=== PATIENT | male | born 1960 | race American Indian/Alaskan Native ===

== ENCOUNTER 2022-09-01 04:19 | Emergency (ER) | payer MEDICARE, BC ==
[2022-09-01] MEDS ORDERED: HYDROCODONE-ACETAMIN 10-325 MG PO ONE (04:20)
--- NOTE | 2022-09-01 07:53 | XRAY ---
Indication: Head injury following fall. Multiple contiguous axial images obtained through the head without contrast. Comparison: None Age-appropriate global atrophy. Bifrontal lobe encephalomalacia with overlying frontal craniotomy/duraplasty. No acute intracranial hemorrhage, abnormal extra-axial fluid collection, or mass effect. Fourth ventricle is midline without hydrocephalus. Lee-white matter differentiation preserved. Enlarged right pituitary gland/mass measuring 19 x 12.6 x 18.4 mm.. Remaining bony calvarium intact. Near-complete opacification and lesser degree both ethmoid/right maxillary sinuses. Mastoid air cells are clear. Impression: 1. Postsurgical changes related to frontal craniotomy with underlying encephalomalacia. 2. No acute intracranial abnormalities. 3. Enlarged right pituitary gland/mass. Outside comparison studies recommended. 4. Incidental pansinusitis. Comment: Preliminary interpretation made by [facility]. No critical discrepancy.
--- NOTE | 2022-09-01 07:57 | XRAY ---
Indication: Pain following fall. Multiple contiguous axial images obtained through the facial bones. Sagittal and coronal reformatted images obtained. Comparison: None Bilateral dental amalgams produces beam artifact limiting these levels. No acute fracture, suspicious bone lesions, or osseous destructive process. Orbits including roof, wall, and floors intact. Near complete opacification of both frontal and lesser degree both ethmoid/right maxillary sinuses. Nasal passages are clear. Mild nasal septal deviation to the left. Visualized cervical spine is intact with incidental multilevel degenerative changes. Remaining visualized noncontrasted soft tissues are unremarkable. CT head reported separately. Impression: Paranasal sinus disease and nasal septal deviation. Remaining CT facial bones negative. Comment: Preliminary interpretation made by [facility]. No critical discrepancy.
--- NOTE | 2022-09-01 07:59 | XRAY ---
Indication: Pain following fall. Comparison: None 3 view right elbow demonstrates moderate degenerative changes with small well-circumscribed posterior heterotopic ossification. No other bony, articular, or soft tissue abnormalities.
--- NOTE | 2022-09-01 07:59 | XRAY ---
Indication: Pain following fall. Multiple contiguous axial images obtained through the cervical spine. Sagittal and coronal reformatted images obtained Comparison: None Axial images negative for acute fracture or suspicious bony lesions. Mild/moderate multilevel cervicothoracic degenerative endplate spurring greatest at C3-C4. Also moderate atlantoaxial and moderate multilevel bilateral degenerative facet arthropathy. Sagittal and coronal reformatted images demonstrate lordotic straightening, positional versus paraspinal spasm. No acute compression fracture, subluxation, or jumped facet. Normal-appearing craniocervical junction. Visualized noncontrasted soft tissues are unremarkable. Impression: 1. Negative acute fracture/subluxation. 2. Multilevel degenerative spondylosis. Comment: Preliminary interpretation made by [facility]. No critical discrepancy.
--- NOTE | 2022-09-01 07:59 | XRAY ---
Indication: Pain following fall. Comparison: None 3 view left knee demonstrates osteopenia, total knee arthroplasty, and tiny well-circumscribed medial/lateral heterotopic ossifications. No other bony, articular, or soft tissue abnormalities.
== END 2022-09-01 06:13 | disposition home or self-care (01) ==
LOC: ED 04:19
DX: S09.90XA Unspecified injury of head, initial encounter (principal); S89.92XA Unspecified injury of left lower leg, initial encounter; S59.901A Unspecified injury of right elbow, initial encounter; W18.2XXA Fall in (into) shower or empty bathtub, initial encounter; Y92.002 Bathroom of unspecified non-institutional (private) residence as the place of occurrence of the external cause; R51.9 Headache, unspecified; I10 Essential (primary) hypertension; Z79.899 Other long term (current) drug therapy
CPT/HCPCS: 70450; 70486; 72125; 73080; 73562; 99285; A9270-GY